=== PATIENT | male | born 1990 | race African-American/Black ===

== ENCOUNTER 2016-06-05 02:40 | Emergency (ER) | payer MEDICAID ==
[~2016-06-05] VITALS: Ht 177.8 cm; Wt 105.0 kg
[2016-06-05 02:42] VITALS: BP 168/86; PULSE 86; RESP 16; TEMP 97.8; O2SAT 100
[2016-06-05] MEDS ORDERED: PENI500T PO (04:20)
[2016-06-05] MEDS ORDERED: NAPR500 PO (04:20)
--- NOTE | 2016-06-05 04:20 | PD ---
HPI Chief Complaint: Lump, Cyst, Hernia Time Seen by Provider: 03:49 Travel History International Travel<30 days: No Contact w/Intl Traveler<30days: No Traveled to known affect area: No History of Present Illness HPI The 26 year-old woman presents emergent department complaining of some left- sided facial swelling. This is been having intermittent jaw swelling and pain FOR the past month or so. He has some dental pain at times but not a lot. He states he fractured a tooth a little while ago. No fevers. No lymph nodes in his neck. No painful swallowing. He otherwise has been feeling generally well and healthy. History Past Medical History Medical History: Denies Significant Hx Past Surgical History Surgical History: No Previous Surgery Social History Alcohol Use: No Tobacco Use: No Allergies-Medications (Allergen,Severity, Reaction): Coded Allergies: Shrimp (Verified Allergy, Intermediate, Nausea/Vomiting, 06/05/16) Review of Systems Except as stated in HPI: all other systems reviewed are Neg Physical Exam Narrative GENERAL: Well-appearing 26-year-old man, no acute distress. SKIN: Focused skin assessment warm/dry. HEENT: Patient is a little bit tender swelling, near the angle of the mandible. It doesn't seem like parotiditis. Inside the mouth he has reasonably good dentition. He has no obvious areas of tenderness. There is no purulence. There is no fullness of the floor of the mouth. NECK: Trachea midline. No JVD. No adenopathy. CARDIOVASCULAR: Regular rate and rhythm. No murmur appreciated. RESPIRATORY: No accessory muscle use. Clear to auscultation. Breath sounds equal bilaterally. MUSCULOSKELETAL: No obvious deformities. No edema. Data Data Last Documented VS Vital Signs Date Time Temp Pulse Resp B/P Pulse Ox O2 Delivery O2 Flow Rate FiO2 06/05/16 02:42 97.8 86 16 168/86 100 Room Air MDM Medical Decision Making Medical Screen Exam Complete: Yes Emergency Medical Condition: Yes Differential Diagnosis Facial swelling, odontogenic facial infection, parotiditis, lymphadenitis, other Narrative Course Medical decision making INITIAL 26-year-old man presents emergency room complaining of left-sided facial pain and swelling. Emotionally well. Is only minimal amount swelling appreciable now. Source is likely odontogenic of this is not clear. I don't see evidence of sialoadenitis. I don't see other adenopathy or adenitis in the neck. We'll plan on treatment for odontogenic facial infection. Outpatient follow-up. Diagnosis Primary Impression: Facial swelling Additional Instructions: Take Naprosyn as needed for pain. Take penicillin as prescribed. Return to the emergency department for any new or worsening symptoms. Follow-up with the dentist for further evaluation. Med/Other Pt SpecificInfo: Prescription(s) given Scripts Penicillin V Potassium 500 Mg [id number] Mg PO Q8H 7 Days Prov:Jean Parks MD 06/05/16 Naproxen (Naprosyn)500 Mg [id number] Mg PO BID PRN (PAIN SCALE 1 TO 10) #20 TAB Prov:Jean Parks MD 06/05/16 Disposition: 01 DISCHARGE HOME Condition: Stable Jean Parks MD Jun 05, 2016 04:20
== END 2016-06-05 04:54 | disposition home or self-care (01) ==
LOC: NEPC 02:40
DX: R22.0 Localized swelling, mass and lump, head (principal)
CPT/HCPCS: 99283